=== PATIENT | male | born 1955 | race Caucasian/White ===

== ENCOUNTER → 2020-11-05 | Outpatient (CLI) | payer MEDICARE ==
[2020-11-05 14:57] LABS: PROTHROMBIN TIME 42.4 SEC (9.6-11.6)
[2020-11-05 15:31] LABS: INR 4.36 (0.85-1.15)
== END | disposition home or self-care (01) ==
LOC: LAB 13:49
PROVIDERS: ATTEND Internal Medicine
DX: I24.0 Acute coronary thrombosis not resulting in myocardial infarction (principal)
CPT/HCPCS: 36415; 85610

== ENCOUNTER → 2023-03-12 | Outpatient (CLI) | payer MEDICARE ==
[2023-03-12 13:44] LABS: MAGNESIUM 2.1 mg/dL (1.80-2.40); POTASSIUM 4.7 mmol/L (3.5-5.1)
== END | disposition home or self-care (01) ==
LOC: LAB 13:00
PROVIDERS: ATTEND Internal Medicine
DX: E87.5 Hyperkalemia (principal)
CPT/HCPCS: 36415; 83735; 84132

== ENCOUNTER 2023-08-30 17:27 | Emergency (ER) | payer MEDICARE ==
[~2023-08-30] VITALS: Ht 172.7 cm; Wt 93.0 kg
[2023-08-30 19:05] LABS: BASOPHILS # (AUTO) 0.04 K/uL (0.00-0.20); BASOPHILS % (AUTO) 0.5 % (0.0-5.0); EOSINOPHILS # (AUTO) 0.12 K/uL (0.00-0.70); EOSINOPHILS % (AUTO) 1.5 % (0.0-8.0); HEMATOCRIT 49.2 % (42-54); IMMATURE GRANULOCYTE ABSOLUTE 0.03 K/uL (0-1); LYMPHOCYTES # (AUTO) 2.8 K/uL (1.0-4.8); LYMPHOCYTES % (AUTO) 34.3 % (21.0-51.0); MEAN CORPUSCULAR HEMOGLOBIN 29.3 pg (27.0-33.0); MEAN CORPUSCULAR HGB CONC 33.3 g/dL (32.0-36.0); MONOCYTES # (AUTO) 0.8 K/uL (0.1-1.0); MONOCYTES % (AUTO) 9.8 % (3.0-13.0); NEUTROPHILS # (AUTO) 4.4 K/uL (1.8-7.7); NEUTROPHILS % (AUTO) 53.5 % (40.0-77.0); PLATELET COUNT (AUTO) 241 K/uL (130-400); RED BLOOD CELL COUNT(AUTO) 5.59 MIL/uL (4.50-6.20); WHITE BLOOD COUNT (AUTO) 8.3 K/uL (4.8-10.8)
[2023-08-30 19:14] LABS: POTASSIUM 3.8 mmol/L (3.5-5.1)
[2023-08-30 19:19] LABS: ALBUMIN 3.5 g/dL (3.5-5.0); BILIRUBIN,TOTAL 0.6 mg/dL (0.2-1.0); TOTAL PROTEIN, SERUM 6.9 g/dL (6.0-8.3)
[2023-08-30 19:38] LABS: INR 1.43 (0.85-1.15); PROTHROMBIN TIME 16.2 SEC (9.6-11.6)
[2023-08-30 19:40] LABS: PARTIAL THROMBOPLASTIN TIME 33.9 SEC (26.3-35.5)
[2023-08-30 21:07] VITALS: BP 132/87; PULSE 61; RESP 16; O2SAT 97
[2023-08-30] MEDS ORDERED: POLY17PO4 PO (21:40)
== END 2023-08-30 21:56 | disposition home or self-care (01) ==
LOC: EDH 17:27
DX: K92.1 Melena (principal); K64.8 Other hemorrhoids; I10 Essential (primary) hypertension; E78.00 Pure hypercholesterolemia, unspecified; Z90.49 Acquired absence of other specified parts of digestive tract; Z90.89 Acquired absence of other organs; Z98.890 Other specified postprocedural states; Z88.0 Allergy status to penicillin
CPT/HCPCS: 36415; 80053; 85025; 85610; 85730

== ENCOUNTER 2023-11-18 10:07 | Emergency (ER) | payer MEDICARE ==
[~2023-11-18] VITALS: Ht 172.7 cm; Wt 90.7 kg
[~2023-11-18 10:07] MED LIST: POLY17PO4 PO
[2023-11-18 10:14] VITALS: BP 143/98; PULSE 87; RESP 14; O2SAT 97
[2023-11-18 10:39] LABS: RAPID GROUP A STREP negative (NEGATIVE)
[2023-11-18 10:49] LABS: INFLUENZA TYPE A Negative For Type A (NEGATIVE); INFLUENZA TYPE B Negative For Type B (NEGATIVE)
[2023-11-18 11:32] LABS: SARS-CoV-2, RNA, NAAT NEGATIVE SARS CoV-2 (NEGATIVE)
[2023-11-18] MEDS ORDERED: GUAI120015 PO (11:50)
[2023-11-18] MEDS ORDERED: GUAIFENESIN 600 MG TABLET.ER PO ONE (12:00)
== END 2023-11-18 12:08 | disposition home or self-care (01) ==
LOC: EDH 10:07
DX: J98.8 Other specified respiratory disorders (principal); R05.9 Cough, unspecified; E78.00 Pure hypercholesterolemia, unspecified; I10 Essential (primary) hypertension; I25.2 Old myocardial infarction; Z88.0 Allergy status to penicillin; Z90.49 Acquired absence of other specified parts of digestive tract; Z20.822 Contact with and (suspected) exposure to COVID-19
CPT/HCPCS: 99283; 87635; 87880; 87804 ×2; C9803